=== PATIENT | male | born 1995 | race Caucasian/White ===

== ENCOUNTER 2023-04-07 16:13 | Emergency (ER) | payer BC ==
[2023-04-07 16:26] VITALS: BP 126/70; PULSE 63; RESP 18; TEMP 98.5; BMI 30.1
[2023-04-07 17:58] LABS: BASO % 0.3 % (0-2.0); EOS % 0.1 % (0-4.5); HEMATOCRIT 42.7 % (35.4-49); HEMOGLOBIN 14.9 GM/dL (11.7-16.9); LYMPH % 4.5 % (8-40); MCH 30.1 pg (25.7-33.7); MEAN CELL VOLUME 85.9 fl (80-96); MEAN PLT VOLUME 7.6 fl (7.5-11.1); MONO % 4.1 % (3.8-10.2); PLATELET COUNT 323 10^3/uL (134-434); RBC 4.97 M/mm3 (4.00-5.60); RDW 13.4 % (11.9-15.9); WHITE BLOOD COUNT 15.4 K/mm3 (4.0-10.0)
[2023-04-07 18:08] LABS: INR 1.03 (0.83-1.09)
[2023-04-07 18:14] LABS: POTASSIUM 3.6 mmol/L (3.5-5.1)
[2023-04-07 18:16] LABS: CALCIUM 9.9 mg/dL (8.5-10.1)
[2023-04-07 18:17] LABS: BLOOD UREA NITROGEN 12.7 mg/dL (7-18)
[2023-04-07 18:19] LABS: BILIRUBIN,DIRECT 0.1 mg/dL (0.0-0.2)
[2023-04-07 18:20] LABS: CREATININE 0.9 mg/dL (0.55-1.3)
[2023-04-07 18:21] LABS: BILIRUBIN,TOTAL 0.6 mg/dL (0.2-1); TOT PROT 8.7 g/dl (6.4-8.2)
[2023-04-07 18:30] LABS: URINE APPEARANCE TURBID; URINE BILIRUBIN NEGATIVE (NEGATIVE); URINE COLOR YELLOW; URINE GLUCOSE (UA) NEGATIVE (NEGATIVE); URINE KETONE TRACE (NEGATIVE); URINE LEUK ESTERASE NEGATIVE (NEGATIVE); URINE NITRITE NEGATIVE (NEGATIVE); URINE PROTEIN TRACE (NEGATIVE)
[2023-04-07 18:43] LABS: ANISOCYTOSIS 1+; MACROCYTOSIS 0
== END 2023-04-07 20:10 | disposition home or self-care (01) ==
LOC: JER 16:13
DX: K80.20 Calculus of gallbladder without cholecystitis without obstruction (principal); R10.11 Right upper quadrant pain
CPT/HCPCS: 36415; 76705-TC; 80048; 80076; 81003; 85025; 85610; 86850; 86900; 86901; 87086; 99284-25